=== PATIENT | female | born 1945 | race Caucasian/White ===

== ENCOUNTER 2016-12-01 10:38 | Inpatient (IN) | payer MEDICARE, OTHER ==
[~2016-12-01] VITALS: Ht 157.5 cm; Wt 145.1 kg
[~2016-12-01 10:38] MED LIST: GLYCOPYRROLATE 0.2 MG/ML VIAL IV ONE; MIDAZOLAM 2 MG/2 ML INJ IV ONE; PROPOFOL 50ML PER ML IV ONE
[2016-12-01] MEDS ORDERED: DEXTROSE 50% 50 ML ONE (11:03)
[2016-12-01] MEDS ORDERED: LISINOPRIL/HCTZ 20/12.5 TAB PO SCH (16:45)
[2016-12-01] MEDS ORDERED: DEXTROSE 50% SYRINGE 50 ML IV PRN (16:45)
[2016-12-01] MEDS ORDERED: PANTOPRAZOLE 40 MG VIAL IV SCH (16:45)
[2016-12-01] MEDS ORDERED: DUONEB INH PRN (16:45)
[2016-12-01] MEDS ORDERED: BISACODYL EC 5 MG TAB PO PRN (16:45)
[2016-12-01] MEDS ORDERED: ELETRIPTAN HYDROBROMIDE 40 MG PO PRN (16:45)
[2016-12-01] MEDS ORDERED: SALINE FLUSH 10 ML FLUSH PRN ×2 (16:45→16:55)
[2016-12-01] MEDS ORDERED: BISACODYL 10 MG SUPP RECTAL PRN (16:45)
[2016-12-01] MEDS ORDERED: GLUCAGON 1 MG VIAL IM PRN (16:45)
[2016-12-01] MEDS ORDERED: MAG HYDROX 30 ML UDC PO PRN (16:45)
[2016-12-01] MEDS ORDERED: ALU/MAG/SIM 30 ML UDC PO PRN (16:45)
[2016-12-01] MEDS ORDERED: ACETAMINOPHEN 325 MG TAB PO PRN (16:45)
[2016-12-01] MEDS ORDERED: LEVEMIR INSULIN SUBQ SCH (17:00)
[2016-12-01] MEDS ORDERED: Furosemide 20 MG/2 ML VIAL IV ONE ×2 (17:05→20:05)
[2016-12-01 18:15] VITALS: BP_SYST 102; RESP 18; TEMP 98.2; Ht 157.5 cm; Wt 145.1 kg
[2016-12-01] MEDS ORDERED: [UNRECOGNIZED DRUG - REMARK] XX SCH (18:57)
[2016-12-01] MEDS: DUONEB INH SCH ×3 (19:00→22:29)
[2016-12-01] MEDS ORDERED: SUMATRIPTAN 25 MG PO PRN (19:05)
[2016-12-01] MEDS: GABAPENTIN 300 MG CAP PO SCH (19:08)
[2016-12-01] MEDS: SPIRONOLACTONE 25 MG TAB PO SCH (19:09)
[2016-12-01] MEDS: DULoxetine 30 MG CAP PO SCH (19:09)
[2016-12-01] MEDS ORDERED: SALINE FLUSH 10 ML FLUSH SCH (20:00)
[2016-12-01 20:02] VITALS: BP_SYST 149; RESP 16; TEMP 98.3
[2016-12-01] MEDS: Atorvastatin 20 MG TAB PO SCH (20:43)
[2016-12-01] MEDS: EXCEDRIN EXTRA STR TAB PO PRN (20:44)
[2016-12-01] MEDS: METOPROLOL XL 100 MG TAB PO SCH (20:44)
[2016-12-01] MEDS: PANTOPRAZOLE 40 MG VIAL IV SCH (20:45)
[2016-12-01] MEDS: SALINE FLUSH 10 ML FLUSH SCH (20:45)
[2016-12-01] MEDS ORDERED: LAMOTRIGINE 25 MG PO SCH (21:00)
[2016-12-01 22:30] VITALS: RESP 22
[2016-12-01 23:34] VITALS: BP_SYST 141; RESP 16; TEMP 98.3
[2016-12-02 00:24] VITALS: RESP 22
[2016-12-02] MEDS: DUONEB INH SCH ×5 (02:37→20:41)
[2016-12-02 03:53] VITALS: BP_SYST 106; RESP 16; TEMP 98.8
[2016-12-02] MEDS: SODIUM CHLORIDE 0.9% FLUSH BAG 500 ML IV SCH (06:00)
[2016-12-02] MEDS ORDERED: SODIUM CHLORIDE 0.9% FLUSH BAG 500 ML IV SCH (06:00)
[2016-12-02] MEDS ORDERED: DIPHENHYDRAMINE 25 MG CAP PO ONE (07:00)
[2016-12-02] MEDS ORDERED: ACETAMINOPHEN 325 MG TAB PO ONE (07:00)
[2016-12-02] MEDS ORDERED: BISACODYL EC 5 MG TAB PO ONE (07:15)
[2016-12-02 07:25] VITALS: BP_SYST 107; RESP 16; TEMP 99.3
[2016-12-02] MEDS: SPIRONOLACTONE 25 MG TAB PO SCH (08:32)
[2016-12-02] MEDS: GABAPENTIN 300 MG CAP PO SCH (08:33)
[2016-12-02] MEDS: METOPROLOL XL 100 MG TAB PO SCH ×2 (08:33→21:03)
[2016-12-02] MEDS: DULoxetine 30 MG CAP PO SCH (08:33)
[2016-12-02] MEDS: PANTOPRAZOLE 40 MG VIAL IV SCH ×2 (08:34→21:02)
[2016-12-02] MEDS: SALINE FLUSH 10 ML FLUSH SCH ×2 (08:34→20:00)
[2016-12-02] MEDS ORDERED: OMEPRAZOLE 20 MG PO SCH (09:00)
[2016-12-02] MEDS: Furosemide 20 MG/2 ML VIAL IV SCH ×2 (10:51→18:05)
[2016-12-02] MEDS: DEXAMETH OP EYE LT SCH ×2 (12:07→18:05)
[2016-12-02] MEDS: TOBRAMYCIN EYE LT SCH ×2 (12:07→18:05)
[2016-12-02] MEDS ORDERED: PEG/E-LYTE 4,000 ML BTL PO ONE (14:00)
[2016-12-02 16:23] VITALS: BP_SYST 140; RESP 16; TEMP 98.5
[2016-12-02 19:56] VITALS: BP_SYST 150; RESP 20; TEMP 98.4
[2016-12-02] MEDS: EXCEDRIN EXTRA STR TAB PO PRN (21:03)
[2016-12-02] MEDS: Atorvastatin 20 MG TAB PO SCH (21:03)
[2016-12-02 23:24] VITALS: BP_SYST 141; RESP 22; TEMP 98.2
[2016-12-03] VITALS (10 sets, daily range): BP systolic 131–152; RESP 18–20; TEMP 97.6–98.3
[2016-12-03] MEDS: DUONEB INH SCH ×7 (00:07→23:05)
[2016-12-03] MEDS: TOBRAMYCIN EYE LT SCH ×4 (00:12→18:14)
[2016-12-03] MEDS: DEXAMETH OP EYE LT SCH ×4 (00:12→18:14)
[2016-12-03] MEDS ORDERED: PEG/E-LYTE 4,000 ML BTL PO ONE (04:00)
[2016-12-03] MEDS: SODIUM CHLORIDE 0.9% FLUSH BAG 500 ML IV SCH (06:00)
[2016-12-03] MEDS: Furosemide 20 MG/2 ML VIAL IV SCH ×3 (08:41→18:12)
[2016-12-03] MEDS: SALINE FLUSH 10 ML FLUSH SCH ×2 (08:41→20:00)
[2016-12-03] MEDS: DULoxetine 30 MG CAP PO SCH (08:42)
[2016-12-03] MEDS: PANTOPRAZOLE 40 MG VIAL IV SCH ×3 (08:42→21:00)
[2016-12-03] MEDS: GABAPENTIN 300 MG CAP PO SCH (08:42)
[2016-12-03] MEDS: METOPROLOL XL 100 MG TAB PO SCH ×2 (08:43→21:27)
[2016-12-03] MEDS ORDERED: MISSING DOSE XX ONE ×2 (13:30→21:05)
[2016-12-03] MEDS: SPIRONOLACTONE 25 MG TAB PO SCH (14:10)
[2016-12-03] MEDS ORDERED: Furosemide 40 MG/4 ML VIAL IV ONE (16:40)
[2016-12-03] MEDS: Atorvastatin 20 MG TAB PO SCH (21:27)
[2016-12-04] VITALS (19 sets, daily range): BP systolic 121–173; RESP 18–24; TEMP 97.2–98.5
[2016-12-04] MEDS: DEXAMETH OP EYE LT SCH ×4 (00:30→17:36)
[2016-12-04] MEDS: TOBRAMYCIN EYE LT SCH ×4 (00:30→17:36)
[2016-12-04] MEDS: DUONEB INH SCH ×6 (02:49→23:08)
[2016-12-04] MEDS: SODIUM CHLORIDE 0.9% FLUSH BAG 500 ML IV SCH ×4 (05:52→21:30)
[2016-12-04] MEDS ORDERED: MAG CIT SOLN 300 ML PO ONE (07:00)
[2016-12-04] MEDS ORDERED: PANTOPRAZOLE 40 MG TAB PO SCH (07:00)
[2016-12-04] MEDS: Furosemide 20 MG/2 ML VIAL IV SCH ×2 (08:56→17:37)
[2016-12-04] MEDS: SALINE FLUSH 10 ML FLUSH SCH ×2 (08:56→21:09)
[2016-12-04] MEDS: DULoxetine 30 MG CAP PO SCH (08:57)
[2016-12-04] MEDS: PANTOPRAZOLE 40 MG VIAL IV SCH (08:57)
[2016-12-04] MEDS: GABAPENTIN 300 MG CAP PO SCH (08:57)
[2016-12-04] MEDS: SPIRONOLACTONE 25 MG TAB PO SCH (08:57)
[2016-12-04] MEDS: METOPROLOL XL 100 MG TAB PO SCH ×2 (08:58→21:08)
[2016-12-04] MEDS: FERROUS SULF 325 MG TAB PO SCH (21:08)
[2016-12-04] MEDS: IRON SUCROSE COMPLEX 400 MG in SODIUM CHLORIDE 0.9% 250 ML IV SCH (21:08)
[2016-12-04] MEDS: Atorvastatin 20 MG TAB PO SCH (21:08)
[2016-12-05 03:03] VITALS: BP_SYST 181; RESP 18; TEMP 98.2
[2016-12-05] MEDS: DUONEB INH SCH ×4 (03:08→14:43)
[2016-12-05] MEDS: DEXAMETH OP EYE LT SCH ×3 (06:06→12:37)
[2016-12-05] MEDS: TOBRAMYCIN EYE LT SCH ×3 (06:06→12:37)
[2016-12-05 07:00] VITALS: BP_SYST 183; RESP 18; TEMP 98.3
[2016-12-05] MEDS ORDERED: LISINOPRIL 20 MG TAB PO SCH (09:00)
[2016-12-05] MEDS: SALINE FLUSH 10 ML FLUSH SCH (09:11)
[2016-12-05] MEDS: Furosemide 40 MG/4 ML VIAL IV SCH ×2 (09:12→17:31)
[2016-12-05] MEDS: FERROUS SULF 325 MG TAB PO SCH (09:13)
[2016-12-05] MEDS: DULoxetine 30 MG CAP PO SCH (09:13)
[2016-12-05] MEDS: METOPROLOL XL 100 MG TAB PO SCH (09:13)
[2016-12-05] MEDS: GABAPENTIN 300 MG CAP PO SCH (09:13)
[2016-12-05] MEDS: SPIRONOLACTONE 25 MG TAB PO SCH (09:13)
[2016-12-05] MEDS: IRON SUCROSE COMPLEX 400 MG in SODIUM CHLORIDE 0.9% 250 ML IV SCH (09:13)
[2016-12-05 11:00] VITALS: BP_SYST 180; RESP 18; TEMP 98.3
[2016-12-05] MEDS ORDERED: PNEUMO VAC 25 MCG/0.5 ML VL IM.VACC ONE (13:00)
[2016-12-05 15:37] VITALS: BP_SYST 176; RESP 18; TEMP 97.4
[2016-12-05] MEDS: EXCEDRIN EXTRA STR TAB PO PRN (16:26)
[2016-12-05] MEDS ORDERED: TUBERCULIN PPD 5 UNIT SYR ID.VACC ONE (21:00)
[2016-12-07] MEDS ORDERED: SKIN TEST: READ AND RECORD XX SCH (21:00)
[2016-12-12] MEDS ORDERED: TUBERCULIN PPD 5 UNIT SYR ID.VACC ONE (21:00)
== END 2016-12-05 17:40 | disposition home or self-care (01) | DRG 637 ==
LOC: ENRESERVTM → ENRESERVDT → ER 10:38 → ENPENDDIS 17:04 → EMR 17:04 → 4THW 17:50
PROVIDERS: ADMIT Family Medicine; ATTEND Family Medicine
PROC: 0DBK8ZX Excision of Ascending Colon, Via Natural or Artificial Opening Endoscopic, Diagnostic (ICD-10-PCS; 2016-12-04)
PROC: 0DBN8ZX Excision of Sigmoid Colon, Via Natural or Artificial Opening Endoscopic, Diagnostic (ICD-10-PCS; 2016-12-04)
PROC: 0DBM8ZX Excision of Descending Colon, Via Natural or Artificial Opening Endoscopic, Diagnostic (ICD-10-PCS; 2016-12-04)
PROC: 0DBL8ZX Excision of Transverse Colon, Via Natural or Artificial Opening Endoscopic, Diagnostic (ICD-10-PCS; 2016-12-04)
PROC: 0DBH8ZX Excision of Cecum, Via Natural or Artificial Opening Endoscopic, Diagnostic (ICD-10-PCS; principal; 2016-12-04 14:50)
DX: E09.649 Drug or chemical induced diabetes mellitus with hypoglycemia without coma (principal); G93.40 Encephalopathy, unspecified; I50.33 Acute on chronic diastolic (congestive) heart failure; E46 Unspecified protein-calorie malnutrition; D62 Acute posthemorrhagic anemia; I11.0 Hypertensive heart disease with heart failure; I25.10 Atherosclerotic heart disease of native coronary artery without angina pectoris; G47.30 Sleep apnea, unspecified; J42 Unspecified chronic bronchitis; Z85.3 Personal history of malignant neoplasm of breast; F32.9 Major depressive disorder, single episode, unspecified; E66.9 Obesity, unspecified; Z98.84 Bariatric surgery status; Z79.4 Long term (current) use of insulin; Z79.82 Long term (current) use of aspirin; Z87.891 Personal history of nicotine dependence; T38.3X5A Adverse effect of insulin and oral hypoglycemic [antidiabetic] drugs, initial encounter; K64.8 Other hemorrhoids
CPT/HCPCS: 36415; 36430; 36569; 71010; 71020; 76937; 80048; 80053; 81001; 82274; 82607; 82728; 82746; 82947; 83036; 83090; 83540; 83615; 83735; 83880; 83921; 84439; 84443; 84466; 84484; 85025; 85046; 85610; 85652; 85730; 86141; 86850; 86870; 86880; 86885; 86886; 86900; 86901; 86922; 86970; 86976; 88305; 93005; 93306; 94640; 94660; 94799; 96374; 99223; 99232; 99233

== ENCOUNTER 2016-12-05 09:12 | Inpatient (IN) | payer MEDICARE, OTHER ==
[~2016-12-05] VITALS: Ht 157.5 cm; Wt 138.3 kg
[2016-12-05] MEDS ORDERED: PNEUMO VAC 25 MCG/0.5 ML VL IM.VACC ONE (14:35)
[2016-12-05] MEDS: Furosemide 20 MG/2 ML VIAL IV SCH ×2 (16:25→17:00)
[2016-12-05] MEDS ORDERED: DUONEB INH PRN (17:20)
[2016-12-05] MEDS ORDERED: EXCEDRIN EXTRA STR TAB PO PRN (17:20)
[2016-12-05] MEDS ORDERED: ACETAMINOPHEN 325 MG TAB PO PRN ×2 (17:20→17:25)
[2016-12-05] MEDS ORDERED: ELETRIPTAN HYDROBROMIDE 40 MG PO PRN (17:20)
[2016-12-05] MEDS ORDERED: BISACODYL 10 MG SUPP RECTAL PRN (17:20)
[2016-12-05] MEDS ORDERED: GLUCAGON 1 MG VIAL IM PRN (17:25)
[2016-12-05] MEDS ORDERED: POLYETHYLENE GLYCOL 17 GM PACKET PO PRN (17:25)
[2016-12-05] MEDS ORDERED: DEXTROSE 50% SYRINGE 50 ML IV PRN (17:25)
[2016-12-05] MEDS: DEXAMETH OP EYE LT SCH (18:00)
[2016-12-05] MEDS: TOBRAMYCIN EYE LT SCH (18:00)
[2016-12-05] MEDS ORDERED: NEB-BROVANA 15 MCG/2 ML INH SCH (19:00)
[2016-12-05] MEDS ORDERED: NEB-BUDESONIDE 0.25 MG INH SCH (19:00)
[2016-12-05 20:04] VITALS: BP_SYST 159; RESP 18; TEMP 98.2
[2016-12-05] MEDS: ZOLPIDEM 5 MG TAB PO SCH (21:00)
[2016-12-05] MEDS ORDERED: TUBERCULIN PPD 5 UNIT SYR ID.VACC ONE (21:00)
[2016-12-05] MEDS: FERROUS SULF 325 MG TAB PO SCH (21:00)
[2016-12-05] MEDS: MICONAZOLE 2% PWD TOPICAL SCH (22:20)
[2016-12-05] MEDS: GABAPENTIN 400 MG CAP PO SCH (22:21)
[2016-12-05] MEDS: METOPROLOL XL 100 MG TAB PO SCH (22:21)
[2016-12-05] MEDS: Atorvastatin 20 MG TAB PO SCH (22:21)
[2016-12-05] MEDS: NEB-BROVANA 15 MCG/2 ML INH SCH (23:34)
[2016-12-05] MEDS: NEB-BUDESONIDE 0.25 MG INH SCH (23:34)
[2016-12-05] MEDS: NEB-XOPENEX 0.63 MG/3 ML INH SCH (23:34)
[2016-12-05 23:39] VITALS: RESP 20
[2016-12-06] MEDS ORDERED: Flu Vaccine Quadrivalent 60 MCG/0.5 ML IM.VACC ONE (03:35)
[2016-12-06] MEDS: NEB-BROVANA 15 MCG/2 ML INH SCH ×2 (06:26→18:46)
[2016-12-06] MEDS: NEB-BUDESONIDE 0.25 MG INH SCH ×2 (06:26→18:46)
[2016-12-06] MEDS: NEB-XOPENEX 0.63 MG/3 ML INH SCH ×3 (06:26→18:46)
[2016-12-06] MEDS: TOBRAMYCIN EYE LT SCH ×4 (06:29→17:01)
[2016-12-06] MEDS: DEXAMETH OP EYE LT SCH ×4 (06:29→17:01)
[2016-12-06] MEDS: PANTOPRAZOLE 40 MG TAB PO SCH (06:29)
[2016-12-06 06:34] VITALS: BP_SYST 152; RESP 20; TEMP 98
[2016-12-06] MEDS ORDERED: LEVEMIR INSULIN SUBQ SCH (08:00)
[2016-12-06] MEDS: SPIRONOLACTONE 25 MG TAB PO SCH (08:58)
[2016-12-06] MEDS: Furosemide 20 MG/2 ML VIAL IV SCH (08:58)
[2016-12-06] MEDS: METOPROLOL XL 100 MG TAB PO SCH ×2 (08:59→21:07)
[2016-12-06] MEDS: DULoxetine 30 MG CAP PO SCH (08:59)
[2016-12-06] MEDS: LISINOPRIL/HCTZ 20/12.5 TAB PO SCH (09:00)
[2016-12-06] MEDS ORDERED: ASPIRIN 81 MG CHEW TAB PO SCH (09:00)
[2016-12-06] MEDS: MICONAZOLE 2% PWD TOPICAL SCH ×2 (09:00→21:07)
[2016-12-06] MEDS ORDERED: ENOXAPARIN 40 MG/0.4 ML SYR SUBQ SCH (09:00)
[2016-12-06] MEDS ORDERED: Furosemide 40 MG TAB PO SCH (09:00)
[2016-12-06] MEDS ORDERED: CLOPIDOGREL 75 MG TAB PO SCH (09:00)
[2016-12-06 10:02] VITALS: BP_SYST 156; RESP 14; TEMP 97.6
[2016-12-06] MEDS: FERROUS SULF 325 MG TAB PO SCH ×2 (10:55→21:07)
[2016-12-06] MEDS: Furosemide 40 MG TAB PO SCH (16:54)
[2016-12-06] MEDS: TRIAMCINOLONE TOPICAL SCH ×2 (16:55→21:06)
[2016-12-06 17:06] VITALS: BP_SYST 152; RESP 18; TEMP 98.1
[2016-12-06] MEDS: Atorvastatin 20 MG TAB PO SCH (21:07)
[2016-12-06] MEDS: GABAPENTIN 400 MG CAP PO SCH (21:07)
[2016-12-06] MEDS: MAG OXIDE 400 MG TAB PO SCH (21:07)
[2016-12-06] MEDS: ZOLPIDEM 5 MG TAB PO SCH (21:09)
[2016-12-07] MEDS: DEXAMETH OP EYE LT SCH ×4 (01:23→18:20)
[2016-12-07] MEDS: TOBRAMYCIN EYE LT SCH ×4 (01:23→18:20)
[2016-12-07 03:25] VITALS: BP_SYST 159; RESP 18; TEMP 98.6
[2016-12-07] MEDS: SODIUM CHLORIDE 0.9% FLUSH BAG 500 ML IV SCH (06:00)
[2016-12-07] MEDS: NEB-XOPENEX 0.63 MG/3 ML INH SCH ×3 (06:26→19:33)
[2016-12-07] MEDS: NEB-BROVANA 15 MCG/2 ML INH SCH ×2 (06:26→19:33)
[2016-12-07] MEDS: NEB-BUDESONIDE 0.25 MG INH SCH ×2 (06:26→19:33)
[2016-12-07] MEDS: PANTOPRAZOLE 40 MG TAB PO SCH (06:33)
[2016-12-07] MEDS: SPIRONOLACTONE 25 MG TAB PO SCH (08:58)
[2016-12-07] MEDS: DULoxetine 30 MG CAP PO SCH (08:58)
[2016-12-07] MEDS: LISINOPRIL/HCTZ 20/12.5 TAB PO SCH (09:01)
[2016-12-07] MEDS: METOPROLOL XL 100 MG TAB PO SCH ×2 (09:01→20:46)
[2016-12-07] MEDS: MICONAZOLE 2% PWD TOPICAL SCH ×2 (09:01→20:48)
[2016-12-07] MEDS: MAG OXIDE 400 MG TAB PO SCH ×2 (09:01→20:46)
[2016-12-07] MEDS: Furosemide 40 MG TAB PO SCH ×2 (09:01→17:10)
[2016-12-07] MEDS: TRIAMCINOLONE TOPICAL SCH ×2 (09:02→20:48)
[2016-12-07 10:03] VITALS: BP_SYST 132; TEMP 97.9
[2016-12-07 10:04] VITALS: RESP 20
[2016-12-07] MEDS: ACETAMIN/BUTALB/CAFF PO PRN (10:24)
[2016-12-07] MEDS: FERROUS SULF 325 MG TAB PO SCH ×2 (12:43→20:47)
[2016-12-07 15:23] VITALS: BP_SYST 177; RESP 18; TEMP 98.4
[2016-12-07] MEDS: ZOLPIDEM 5 MG TAB PO SCH (20:45)
[2016-12-07] MEDS: GABAPENTIN 400 MG CAP PO SCH (20:46)
[2016-12-07] MEDS: Atorvastatin 20 MG TAB PO SCH (20:46)
[2016-12-07] MEDS: SKIN TEST: READ AND RECORD XX SCH (20:52)
[2016-12-07 21:47] VITALS: BP_SYST 151
[2016-12-08] MEDS: DEXAMETH OP EYE LT SCH ×4 (00:14→18:41)
[2016-12-08] MEDS: TOBRAMYCIN EYE LT SCH ×4 (00:14→18:41)
[2016-12-08] MEDS: SODIUM CHLORIDE 0.9% FLUSH BAG 500 ML IV SCH (05:05)
[2016-12-08] MEDS: PANTOPRAZOLE 40 MG TAB PO SCH (05:15)
[2016-12-08 05:35] VITALS: BP_SYST 178; RESP 18; TEMP 98.1
[2016-12-08] MEDS: NEB-XOPENEX 0.63 MG/3 ML INH SCH ×3 (07:12→19:13)
[2016-12-08] MEDS: NEB-BUDESONIDE 0.25 MG INH SCH ×2 (07:12→19:13)
[2016-12-08] MEDS: NEB-BROVANA 15 MCG/2 ML INH SCH ×2 (07:12→19:13)
[2016-12-08] MEDS: ACETAMIN/BUTALB/CAFF PO PRN ×2 (08:18→13:11)
[2016-12-08] MEDS: FERROUS SULF 325 MG TAB PO SCH ×2 (08:19→21:09)
[2016-12-08] MEDS: METOPROLOL XL 100 MG TAB PO SCH ×2 (08:19→21:10)
[2016-12-08] MEDS: MAG OXIDE 400 MG TAB PO SCH ×2 (08:20→21:10)
[2016-12-08] MEDS: DULoxetine 30 MG CAP PO SCH (08:21)
[2016-12-08] MEDS: Furosemide 40 MG TAB PO SCH ×2 (08:21→17:00)
[2016-12-08] MEDS: LISINOPRIL/HCTZ 20/12.5 TAB PO SCH (08:21)
[2016-12-08] MEDS: SPIRONOLACTONE 25 MG TAB PO SCH (08:22)
[2016-12-08] MEDS: MICONAZOLE 2% PWD TOPICAL SCH ×2 (08:23→21:10)
[2016-12-08 09:32] VITALS: Ht 157.5 cm; Wt 138.3 kg
[2016-12-08] MEDS ORDERED: MISSING DOSE XX ONE (09:45)
[2016-12-08 10:23] VITALS: BP_SYST 153; TEMP 97.8
[2016-12-08 10:24] VITALS: RESP 20
[2016-12-08] MEDS: KCL CR 10 MEQ TAB PO SCH (13:04)
[2016-12-08] MEDS: TRIAMCINOLONE TOPICAL SCH ×2 (13:13→21:11)
[2016-12-08 16:52] VITALS: BP_SYST 132; RESP 20; TEMP 97.7
[2016-12-08] MEDS: Atorvastatin 20 MG TAB PO SCH (21:09)
[2016-12-08] MEDS: ZOLPIDEM 5 MG TAB PO SCH (21:10)
[2016-12-08] MEDS: GABAPENTIN 400 MG CAP PO SCH (21:10)
[2016-12-08 23:57] VITALS: BP_SYST 107; RESP 20; TEMP 98
[2016-12-09] MEDS: DEXAMETH OP EYE LT SCH ×4 (00:21→17:05)
[2016-12-09] MEDS: TOBRAMYCIN EYE LT SCH ×4 (00:21→17:05)
[2016-12-09] MEDS: SODIUM CHLORIDE 0.9% FLUSH BAG 500 ML IV SCH (05:46)
[2016-12-09] MEDS: PANTOPRAZOLE 40 MG TAB PO SCH (05:50)
[2016-12-09] MEDS: NEB-XOPENEX 0.63 MG/3 ML INH SCH ×3 (06:38→18:46)
[2016-12-09] MEDS: NEB-BUDESONIDE 0.25 MG INH SCH ×2 (06:38→18:46)
[2016-12-09] MEDS: NEB-BROVANA 15 MCG/2 ML INH SCH ×2 (06:38→18:46)
[2016-12-09] MEDS: ACETAMIN/BUTALB/CAFF PO PRN ×2 (08:52→13:06)
[2016-12-09] MEDS: FERROUS SULF 325 MG TAB PO SCH ×2 (09:00→22:08)
[2016-12-09] MEDS ORDERED: MAGNESIUM SULF 1 GM/100 ML 100 ML IV ONE (09:20)
[2016-12-09] MEDS ORDERED: KCL CR 20 MEQ TAB PO ONE (09:20)
[2016-12-09 09:49] VITALS: BP_SYST 151
[2016-12-09 09:50] VITALS: TEMP 98
[2016-12-09 09:51] VITALS: RESP 20
[2016-12-09] MEDS: DULoxetine 30 MG CAP PO SCH (10:20)
[2016-12-09] MEDS: Furosemide 40 MG TAB PO SCH ×2 (10:21→17:06)
[2016-12-09] MEDS: TRIAMCINOLONE TOPICAL SCH ×2 (10:22→22:09)
[2016-12-09] MEDS: METOPROLOL XL 100 MG TAB PO SCH ×2 (10:22→22:08)
[2016-12-09] MEDS: KCL CR 10 MEQ TAB PO SCH (10:22)
[2016-12-09] MEDS: MAG OXIDE 400 MG TAB PO SCH ×2 (10:23→22:07)
[2016-12-09] MEDS: SPIRONOLACTONE 25 MG TAB PO SCH ×2 (10:24→21:00)
[2016-12-09] MEDS: MICONAZOLE 2% PWD TOPICAL SCH ×2 (10:25→22:09)
[2016-12-09] MEDS: LISINOPRIL 20 MG TAB PO SCH (12:56)
[2016-12-09 15:38] VITALS: BP_SYST 139; RESP 20; TEMP 97.6
[2016-12-09] MEDS ORDERED: MISSING DOSE XX ONE (22:00)
[2016-12-09] MEDS: Atorvastatin 20 MG TAB PO SCH (22:07)
[2016-12-09] MEDS: ZOLPIDEM 5 MG TAB PO SCH (22:08)
[2016-12-09] MEDS: GABAPENTIN 100 MG CAP PO SCH (22:08)
[2016-12-10] MEDS: TOBRAMYCIN EYE LT SCH ×4 (00:21→17:58)
[2016-12-10] MEDS: DEXAMETH OP EYE LT SCH ×4 (00:21→17:58)
[2016-12-10 05:15] VITALS: RESP 20; TEMP 98.2
[2016-12-10 05:17] VITALS: BP_SYST 130
[2016-12-10] MEDS: SODIUM CHLORIDE 0.9% FLUSH BAG 500 ML IV SCH (06:00)
[2016-12-10] MEDS: NEB-BROVANA 15 MCG/2 ML INH SCH ×2 (06:03→18:51)
[2016-12-10] MEDS: NEB-BUDESONIDE 0.25 MG INH SCH ×2 (06:03→18:51)
[2016-12-10] MEDS: NEB-XOPENEX 0.63 MG/3 ML INH SCH ×3 (06:03→18:51)
[2016-12-10] MEDS: PANTOPRAZOLE 40 MG TAB PO SCH (07:00)
[2016-12-10] MEDS: DULoxetine 30 MG CAP PO SCH (09:00)
[2016-12-10] MEDS: Furosemide 40 MG TAB PO SCH ×2 (09:00→17:57)
[2016-12-10] MEDS: SPIRONOLACTONE 25 MG TAB PO SCH ×2 (09:00→21:32)
[2016-12-10] MEDS: MAG OXIDE 400 MG TAB PO SCH ×2 (09:00→21:33)
[2016-12-10] MEDS: KCL CR 10 MEQ TAB PO SCH (09:00)
[2016-12-10] MEDS: FERROUS SULF 325 MG TAB PO SCH ×2 (09:00→21:33)
[2016-12-10 09:47] VITALS: BP_SYST 147; RESP 18; TEMP 98
[2016-12-10] MEDS: METOPROLOL XL 100 MG TAB PO SCH ×2 (10:07→21:33)
[2016-12-10] MEDS: MICONAZOLE 2% PWD TOPICAL SCH ×2 (10:58→21:35)
[2016-12-10] MEDS: TRIAMCINOLONE TOPICAL SCH ×2 (10:59→21:34)
[2016-12-10 16:12] VITALS: BP_SYST 137; RESP 18; TEMP 98
[2016-12-10] MEDS: GABAPENTIN 100 MG CAP PO SCH (21:33)
[2016-12-10] MEDS: Atorvastatin 20 MG TAB PO SCH (21:33)
[2016-12-10] MEDS: ZOLPIDEM 5 MG TAB PO SCH (21:41)
[2016-12-11] VITALS (7 sets, daily range): BP systolic 139–157; RESP 18–20; TEMP 97.4–97.9
[2016-12-11] MEDS: SODIUM CHLORIDE 0.9% FLUSH BAG 500 ML IV SCH (06:00)
[2016-12-11] MEDS: TOBRAMYCIN EYE LT SCH ×4 (06:05→17:38)
[2016-12-11] MEDS: PANTOPRAZOLE 40 MG TAB PO SCH ×2 (06:05→17:37)
[2016-12-11] MEDS: DEXAMETH OP EYE LT SCH ×4 (06:05→17:38)
[2016-12-11] MEDS: NEB-BROVANA 15 MCG/2 ML INH SCH ×2 (07:26→19:36)
[2016-12-11] MEDS: NEB-XOPENEX 0.63 MG/3 ML INH SCH ×3 (07:26→19:36)
[2016-12-11] MEDS: NEB-BUDESONIDE 0.25 MG INH SCH ×2 (07:26→19:36)
[2016-12-11] MEDS: MAG OXIDE 400 MG TAB PO SCH ×2 (09:57→21:34)
[2016-12-11] MEDS: Furosemide 40 MG TAB PO SCH ×2 (09:57→17:38)
[2016-12-11] MEDS: SPIRONOLACTONE 25 MG TAB PO SCH ×2 (09:57→21:35)
[2016-12-11] MEDS: FERROUS SULF 325 MG TAB PO SCH ×2 (09:57→21:34)
[2016-12-11] MEDS: LISINOPRIL 20 MG TAB PO SCH (09:57)
[2016-12-11] MEDS: DULoxetine 30 MG CAP PO SCH (09:58)
[2016-12-11] MEDS: KCL CR 10 MEQ TAB PO SCH (09:58)
[2016-12-11] MEDS: METOPROLOL XL 100 MG TAB PO SCH ×2 (09:58→21:34)
[2016-12-11] MEDS: MICONAZOLE 2% PWD TOPICAL SCH ×2 (09:59→21:35)
[2016-12-11] MEDS: TRIAMCINOLONE TOPICAL SCH ×2 (09:59→21:36)
[2016-12-11] MEDS: ACETAMIN/BUTALB/CAFF PO PRN (10:03)
[2016-12-11] MEDS: GABAPENTIN 100 MG CAP PO SCH (21:33)
[2016-12-11] MEDS: ZOLPIDEM 5 MG TAB PO SCH (21:33)
[2016-12-11] MEDS: Atorvastatin 20 MG TAB PO SCH (21:33)
[2016-12-12] MEDS: TOBRAMYCIN EYE LT SCH ×4 (00:49→17:01)
[2016-12-12] MEDS: DEXAMETH OP EYE LT SCH ×4 (00:49→17:01)
[2016-12-12 03:18] VITALS: BP_SYST 107; RESP 18; TEMP 98.1
[2016-12-12] MEDS: PANTOPRAZOLE 40 MG TAB PO SCH ×2 (05:58→11:10)
[2016-12-12] MEDS: NEB-BUDESONIDE 0.25 MG INH SCH ×2 (07:22→18:49)
[2016-12-12] MEDS: NEB-BROVANA 15 MCG/2 ML INH SCH ×2 (07:22→18:49)
[2016-12-12] MEDS: NEB-XOPENEX 0.63 MG/3 ML INH SCH ×3 (07:22→18:49)
[2016-12-12] MEDS: SPIRONOLACTONE 25 MG TAB PO SCH ×2 (09:00→21:13)
[2016-12-12] MEDS: KCL CR 10 MEQ TAB PO SCH (11:09)
[2016-12-12] MEDS: LISINOPRIL 20 MG TAB PO SCH (11:09)
[2016-12-12] MEDS: DULoxetine 30 MG CAP PO SCH (11:09)
[2016-12-12] MEDS: MAG OXIDE 400 MG TAB PO SCH ×2 (11:10→21:14)
[2016-12-12] MEDS: CLOPIDOGREL 75 MG TAB PO SCH (11:10)
[2016-12-12] MEDS: FERROUS SULF 325 MG TAB PO SCH ×2 (11:10→21:14)
[2016-12-12] MEDS: Furosemide 40 MG TAB PO SCH ×2 (11:10→17:00)
[2016-12-12] MEDS: METOPROLOL XL 100 MG TAB PO SCH ×2 (11:11→21:13)
[2016-12-12] MEDS: ASPIRIN EC 81 MG TAB PO SCH (11:11)
[2016-12-12] MEDS: MICONAZOLE 2% PWD TOPICAL SCH ×2 (11:12→21:18)
[2016-12-12] MEDS: TRIAMCINOLONE TOPICAL SCH ×2 (11:12→21:13)
[2016-12-12 11:27] VITALS: BP_SYST 144; RESP 20; TEMP 97.5
[2016-12-12] MEDS ORDERED: MISSING DOSE XX ONE (12:20)
[2016-12-12 15:26] VITALS: BP_SYST 152; RESP 18; TEMP 97.2
[2016-12-12] MEDS ORDERED: LEVEMIR INSULIN SUBQ SCH (21:00)
[2016-12-12] MEDS ORDERED: TUBERCULIN PPD 5 UNIT SYR ID.VACC ONE (21:00)
[2016-12-12] MEDS: GABAPENTIN 100 MG CAP PO SCH (21:13)
[2016-12-12] MEDS: Atorvastatin 20 MG TAB PO SCH (21:14)
[2016-12-12] MEDS: ZOLPIDEM 5 MG TAB PO SCH (21:14)
[2016-12-13] MEDS: DEXAMETH OP EYE LT SCH ×3 (00:25→09:56)
[2016-12-13] MEDS: TOBRAMYCIN EYE LT SCH ×3 (00:25→09:56)
[2016-12-13] MEDS: PANTOPRAZOLE 40 MG TAB PO SCH ×2 (06:08→17:17)
[2016-12-13 06:33] VITALS: BP_SYST 140; RESP 20; TEMP 98
[2016-12-13] MEDS: NEB-BROVANA 15 MCG/2 ML INH SCH ×2 (07:12→18:28)
[2016-12-13] MEDS: NEB-BUDESONIDE 0.25 MG INH SCH ×2 (07:12→18:29)
[2016-12-13] MEDS: NEB-XOPENEX 0.63 MG/3 ML INH SCH ×3 (07:13→18:26)
[2016-12-13] MEDS: KCL CR 10 MEQ TAB PO SCH (09:49)
[2016-12-13] MEDS: DULoxetine 30 MG CAP PO SCH (09:49)
[2016-12-13] MEDS: FERROUS SULF 325 MG TAB PO SCH ×2 (09:49→21:07)
[2016-12-13] MEDS: SPIRONOLACTONE 25 MG TAB PO SCH ×2 (09:49→21:07)
[2016-12-13] MEDS: ASPIRIN EC 81 MG TAB PO SCH (09:49)
[2016-12-13] MEDS: LISINOPRIL 20 MG TAB PO SCH (09:50)
[2016-12-13] MEDS: METOPROLOL XL 100 MG TAB PO SCH ×2 (09:50→21:07)
[2016-12-13] MEDS: CLOPIDOGREL 75 MG TAB PO SCH (09:50)
[2016-12-13] MEDS: MAG OXIDE 400 MG TAB PO SCH ×2 (09:53→21:07)
[2016-12-13] MEDS: Furosemide 40 MG TAB PO SCH ×2 (09:54→17:17)
[2016-12-13] MEDS: MICONAZOLE 2% PWD TOPICAL SCH ×2 (09:57→21:09)
[2016-12-13] MEDS: TRIAMCINOLONE TOPICAL SCH ×2 (09:57→21:09)
[2016-12-13] MEDS: ACETAMIN/BUTALB/CAFF PO PRN (10:00)
[2016-12-13 14:28] VITALS: BP_SYST 128; RESP 18; TEMP 97.6
[2016-12-13 14:29] VITALS: RESP 16; TEMP 97.6
[2016-12-13 17:10] VITALS: BP_SYST 147; RESP 18; TEMP 97.9
[2016-12-13] MEDS: Atorvastatin 20 MG TAB PO SCH (21:06)
[2016-12-13] MEDS: LEVEMIR INSULIN SUBQ SCH (21:09)
[2016-12-13] MEDS: ZOLPIDEM 5 MG TAB PO SCH (21:13)
[2016-12-14 04:07] VITALS: BP_SYST 155; RESP 20; TEMP 97.5
[2016-12-14] MEDS: PANTOPRAZOLE 40 MG TAB PO SCH ×2 (05:33→16:56)
[2016-12-14] MEDS: NEB-BUDESONIDE 0.25 MG INH SCH ×2 (07:12→18:42)
[2016-12-14] MEDS: NEB-XOPENEX 0.63 MG/3 ML INH SCH ×3 (07:12→18:42)
[2016-12-14] MEDS: NEB-BROVANA 15 MCG/2 ML INH SCH ×2 (07:12→18:42)
[2016-12-14] MEDS: ASPIRIN EC 81 MG TAB PO SCH (09:12)
[2016-12-14] MEDS: ACETAMIN/BUTALB/CAFF PO PRN ×2 (09:12→17:29)
[2016-12-14] MEDS: METOPROLOL XL 100 MG TAB PO SCH ×2 (09:13→20:56)
[2016-12-14] MEDS: Furosemide 40 MG TAB PO SCH ×2 (09:14→16:56)
[2016-12-14] MEDS: DULoxetine 30 MG CAP PO SCH (09:14)
[2016-12-14] MEDS: SPIRONOLACTONE 25 MG TAB PO SCH ×2 (09:14→20:55)
[2016-12-14] MEDS: MAG OXIDE 400 MG TAB PO SCH ×2 (09:15→20:56)
[2016-12-14] MEDS: CLOPIDOGREL 75 MG TAB PO SCH (09:15)
[2016-12-14] MEDS: TRIAMCINOLONE TOPICAL SCH ×2 (09:16→20:57)
[2016-12-14] MEDS: KCL CR 10 MEQ TAB PO SCH (09:16)
[2016-12-14] MEDS: LISINOPRIL 20 MG TAB PO SCH (09:16)
[2016-12-14] MEDS: FERROUS SULF 325 MG TAB PO SCH ×2 (09:16→20:56)
[2016-12-14] MEDS: MICONAZOLE 2% PWD TOPICAL SCH ×2 (09:17→20:58)
[2016-12-14] MEDS ORDERED: SOD CHL NASAL SPR 45ML NARE EACH PRN (11:00)
[2016-12-14] MEDS ORDERED: ONDANSETRON 4 MG TAB PO PRN (13:15)
[2016-12-14] MEDS: SOD CHL NASAL SPR 45ML NARE EACH PRN (13:18)
[2016-12-14 14:13] VITALS: BP_SYST 133; RESP 18; TEMP 97.9
[2016-12-14 16:30] VITALS: BP_SYST 134; RESP 18; TEMP 98.1
[2016-12-14] MEDS ORDERED: MISSING DOSE XX ONE (20:30)
[2016-12-14] MEDS: Atorvastatin 20 MG TAB PO SCH (20:55)
[2016-12-14] MEDS: ZOLPIDEM 5 MG TAB PO SCH (20:55)
[2016-12-14] MEDS: LEVEMIR INSULIN SUBQ SCH (20:57)
[2016-12-14] MEDS: SKIN TEST: READ AND RECORD XX SCH (20:58)
[2016-12-14 22:44] VITALS: BP_SYST 126; RESP 20; TEMP 97.8
[2016-12-15] MEDS: NEB-XOPENEX 0.63 MG/3 ML INH SCH ×3 (06:13→18:51)
[2016-12-15] MEDS: NEB-BROVANA 15 MCG/2 ML INH SCH ×2 (06:13→18:51)
[2016-12-15] MEDS: NEB-BUDESONIDE 0.25 MG INH SCH ×3 (06:14→18:51)
[2016-12-15] MEDS: PANTOPRAZOLE 40 MG TAB PO SCH ×2 (06:19→16:26)
[2016-12-15 09:24] VITALS: BP_SYST 146; RESP 20; TEMP 97.5
[2016-12-15] MEDS: LISINOPRIL 20 MG TAB PO SCH (09:40)
[2016-12-15] MEDS: KCL CR 10 MEQ TAB PO SCH (09:40)
[2016-12-15] MEDS: Furosemide 40 MG TAB PO SCH ×2 (09:40→16:26)
[2016-12-15] MEDS: SPIRONOLACTONE 25 MG TAB PO SCH ×2 (09:40→20:51)
[2016-12-15] MEDS: TRIAMCINOLONE TOPICAL SCH ×2 (09:41→20:52)
[2016-12-15] MEDS: METOPROLOL XL 100 MG TAB PO SCH ×2 (09:41→20:50)
[2016-12-15] MEDS: MAG OXIDE 400 MG TAB PO SCH ×2 (09:41→20:50)
[2016-12-15] MEDS: CLOPIDOGREL 75 MG TAB PO SCH (09:41)
[2016-12-15] MEDS: FERROUS SULF 325 MG TAB PO SCH ×2 (09:41→20:50)
[2016-12-15] MEDS: ASPIRIN EC 81 MG TAB PO SCH (09:41)
[2016-12-15] MEDS: MICONAZOLE 2% PWD TOPICAL SCH ×2 (09:42→20:52)
[2016-12-15] MEDS: DULoxetine 30 MG CAP PO SCH (09:42)
[2016-12-15 16:15] VITALS: BP_SYST 142; TEMP 97.5
[2016-12-15] MEDS: Atorvastatin 20 MG TAB PO SCH (20:50)
[2016-12-15] MEDS: ZOLPIDEM 5 MG TAB PO SCH (20:51)
[2016-12-15] MEDS: LEVEMIR INSULIN SUBQ SCH (20:52)
[2016-12-16 02:42] VITALS: BP_SYST 126; RESP 20; TEMP 97.3
[2016-12-16] MEDS: PANTOPRAZOLE 40 MG TAB PO SCH ×2 (06:12→16:29)
[2016-12-16] MEDS: NEB-XOPENEX 0.63 MG/3 ML INH SCH ×3 (06:53→19:18)
[2016-12-16] MEDS: NEB-BUDESONIDE 0.25 MG INH SCH ×2 (06:53→19:18)
[2016-12-16] MEDS: NEB-BROVANA 15 MCG/2 ML INH SCH ×2 (06:53→19:18)
[2016-12-16] MEDS: TRIAMCINOLONE TOPICAL SCH ×2 (09:30→21:01)
[2016-12-16] MEDS: LISINOPRIL 20 MG TAB PO SCH (09:30)
[2016-12-16] MEDS: METOPROLOL XL 100 MG TAB PO SCH ×2 (09:32→21:00)
[2016-12-16] MEDS: KCL CR 10 MEQ TAB PO SCH (09:32)
[2016-12-16] MEDS: MAG OXIDE 400 MG TAB PO SCH ×2 (09:32→21:00)
[2016-12-16] MEDS: FERROUS SULF 325 MG TAB PO SCH ×2 (09:32→21:00)
[2016-12-16] MEDS: SPIRONOLACTONE 25 MG TAB PO SCH (09:32)
[2016-12-16] MEDS: Furosemide 40 MG TAB PO SCH (09:32)
[2016-12-16] MEDS: CLOPIDOGREL 75 MG TAB PO SCH (09:32)
[2016-12-16] MEDS: ASPIRIN EC 81 MG TAB PO SCH (09:33)
[2016-12-16] MEDS: DULoxetine 30 MG CAP PO SCH (09:33)
[2016-12-16] MEDS: MICONAZOLE 2% PWD TOPICAL SCH ×2 (09:34→21:01)
[2016-12-16] MEDS: SOD CHL NASAL SPR 45ML NARE EACH PRN (09:34)
[2016-12-16 09:38] VITALS: TEMP 97.5
[2016-12-16 09:40] VITALS: BP_SYST 130; RESP 20
[2016-12-16 16:43] VITALS: BP_SYST 147; RESP 18; TEMP 97.5
[2016-12-16] MEDS: Atorvastatin 20 MG TAB PO SCH (21:00)
[2016-12-16] MEDS: LEVEMIR INSULIN SUBQ SCH (21:01)
[2016-12-16] MEDS: ZOLPIDEM 5 MG TAB PO SCH (21:03)
[2016-12-17 03:41] VITALS: BP_SYST 156; RESP 18; TEMP 98.5
[2016-12-17] MEDS: PANTOPRAZOLE 40 MG TAB PO SCH ×2 (06:12→16:04)
[2016-12-17] MEDS: NEB-XOPENEX 0.63 MG/3 ML INH SCH ×3 (06:49→18:39)
[2016-12-17] MEDS: NEB-BROVANA 15 MCG/2 ML INH SCH ×2 (06:49→18:39)
[2016-12-17] MEDS: NEB-BUDESONIDE 0.25 MG INH SCH ×2 (06:49→18:40)
[2016-12-17] MEDS: ACETAMIN/BUTALB/CAFF PO PRN (07:57)
[2016-12-17] MEDS: DULoxetine 30 MG CAP PO SCH (09:10)
[2016-12-17] MEDS: LISINOPRIL 20 MG TAB PO SCH (09:11)
[2016-12-17] MEDS: CLOPIDOGREL 75 MG TAB PO SCH (09:11)
[2016-12-17] MEDS: MAG OXIDE 400 MG TAB PO SCH ×2 (09:11→20:54)
[2016-12-17] MEDS: FERROUS SULF 325 MG TAB PO SCH ×2 (09:11→20:53)
[2016-12-17] MEDS: SPIRONOLACTONE 25 MG TAB PO SCH (09:12)
[2016-12-17] MEDS: KCL CR 10 MEQ TAB PO SCH (09:12)
[2016-12-17] MEDS: ASPIRIN EC 81 MG TAB PO SCH (09:13)
[2016-12-17] MEDS: METOPROLOL XL 100 MG TAB PO SCH ×2 (09:13→20:53)
[2016-12-17] MEDS: Furosemide 40 MG TAB PO SCH (09:14)
[2016-12-17] MEDS: TRIAMCINOLONE TOPICAL PRN (09:15)
[2016-12-17] MEDS: MICONAZOLE 2% PWD TOPICAL SCH ×2 (09:15→20:55)
[2016-12-17 10:39] VITALS: BP_SYST 146
[2016-12-17 10:40] VITALS: RESP 20; TEMP 98.1
[2016-12-17 16:14] VITALS: BP_SYST 148; RESP 18; TEMP 97.9
[2016-12-17] MEDS ORDERED: MISSING DOSE XX ONE (18:05)
[2016-12-17] MEDS: Atorvastatin 20 MG TAB PO SCH (20:53)
[2016-12-17] MEDS: ZOLPIDEM 5 MG TAB PO SCH (20:54)
[2016-12-17] MEDS: LEVEMIR INSULIN SUBQ SCH (20:55)
[2016-12-18 04:28] VITALS: BP_SYST 144; RESP 20; TEMP 98
[2016-12-18] MEDS: PANTOPRAZOLE 40 MG TAB PO SCH ×2 (06:02→16:11)
[2016-12-18] MEDS: NEB-BROVANA 15 MCG/2 ML INH SCH ×2 (07:47→18:26)
[2016-12-18] MEDS: NEB-XOPENEX 0.63 MG/3 ML INH SCH ×3 (07:47→18:28)
[2016-12-18] MEDS: NEB-BUDESONIDE 0.25 MG INH SCH ×2 (07:47→18:26)
[2016-12-18] MEDS: SPIRONOLACTONE 25 MG TAB PO SCH (09:14)
[2016-12-18] MEDS: ASPIRIN EC 81 MG TAB PO SCH (09:14)
[2016-12-18] MEDS: KCL CR 10 MEQ TAB PO SCH (09:15)
[2016-12-18] MEDS: Furosemide 40 MG TAB PO SCH (09:15)
[2016-12-18] MEDS: DULoxetine 30 MG CAP PO SCH (09:15)
[2016-12-18] MEDS: FERROUS SULF 325 MG TAB PO SCH ×2 (09:15→20:43)
[2016-12-18] MEDS: LISINOPRIL 20 MG TAB PO SCH (09:16)
[2016-12-18] MEDS: MAG OXIDE 400 MG TAB PO SCH ×2 (09:16→20:43)
[2016-12-18] MEDS: METOPROLOL XL 100 MG TAB PO SCH ×2 (09:16→20:44)
[2016-12-18] MEDS: MICONAZOLE 2% PWD TOPICAL SCH ×2 (09:16→20:44)
[2016-12-18 09:55] VITALS: BP_SYST 141
[2016-12-18 09:56] VITALS: RESP 20; TEMP 98.3
[2016-12-18 20:08] VITALS: BP_SYST 142; RESP 18; TEMP 97.2
[2016-12-18] MEDS: ZOLPIDEM 5 MG TAB PO SCH (20:42)
[2016-12-18] MEDS: Atorvastatin 20 MG TAB PO SCH (20:43)
[2016-12-18] MEDS: LEVEMIR INSULIN SUBQ SCH (20:46)
[2016-12-19 00:16] VITALS: BP_SYST 172; RESP 20; TEMP 97.9
[2016-12-19] MEDS: PANTOPRAZOLE 40 MG TAB PO SCH (06:19)
[2016-12-19] MEDS: NEB-BROVANA 15 MCG/2 ML INH SCH (06:39)
[2016-12-19] MEDS: NEB-XOPENEX 0.63 MG/3 ML INH SCH ×2 (06:39→11:49)
[2016-12-19] MEDS: NEB-BUDESONIDE 0.25 MG INH SCH (06:39)
[2016-12-19 09:00] VITALS: BP_SYST 172; RESP 20; TEMP 97.9
[2016-12-19] MEDS: DULoxetine 30 MG CAP PO SCH (09:13)
[2016-12-19] MEDS: METOPROLOL XL 100 MG TAB PO SCH (09:13)
[2016-12-19] MEDS: MAG OXIDE 400 MG TAB PO SCH (09:14)
[2016-12-19] MEDS: KCL CR 10 MEQ TAB PO SCH (09:14)
[2016-12-19] MEDS: FERROUS SULF 325 MG TAB PO SCH (09:14)
[2016-12-19] MEDS: Furosemide 40 MG TAB PO SCH (09:14)
[2016-12-19] MEDS: ASPIRIN EC 81 MG TAB PO SCH (09:15)
[2016-12-19] MEDS: MICONAZOLE 2% PWD TOPICAL SCH (09:15)
[2016-12-19] MEDS: SPIRONOLACTONE 25 MG TAB PO SCH (09:15)
[2016-12-19] MEDS: LISINOPRIL 20 MG TAB PO SCH (09:15)
[2016-12-19] MEDS: TRIAMCINOLONE TOPICAL PRN (09:16)
[2016-12-19 10:06] VITALS: BP_SYST 151
[2016-12-19 10:07] VITALS: RESP 20; TEMP 97.6
== END 2016-12-19 14:58 | disposition home health service (06) | DRG 556 ==
LOC: NF 18:20
PROVIDERS: ADMIT Family Medicine; ATTEND Family Medicine
DX: R26.2 Difficulty in walking, not elsewhere classified (principal); I50.30 Unspecified diastolic (congestive) heart failure; J44.9 Chronic obstructive pulmonary disease, unspecified; D64.9 Anemia, unspecified; E11.9 Type 2 diabetes mellitus without complications; G47.33 Obstructive sleep apnea (adult) (pediatric); Z95.5 Presence of coronary angioplasty implant and graft; I25.10 Atherosclerotic heart disease of native coronary artery without angina pectoris; Z79.4 Long term (current) use of insulin
CPT/HCPCS: 36415; 71020; 80048; 80053; 82803; 82947; 83735; 84100; 85014; 85018; 85025; 86580; 94640; 94799; 99306; 99308; 99309; 99316